=== PATIENT | female | born 1960 | race Caucasian/White ===

== ENCOUNTER 2016-10-09 17:15 | Observation (INO) | payer MEDICARE, OTHER ==
[~2016-10-09] VITALS: Ht 172.7 cm; Wt 90.0 kg
[2016-10-09] MEDS ORDERED: ONDANSETRON 2MG/ML, 2ML IVPush ONE (17:30)
[2016-10-09] MEDS ORDERED: MAALOX/HYOSCYAMINE/LIDOCAINE 45 ML BOTTLE PO ONE (17:30)
[2016-10-09] MEDS ORDERED: FAMOTIDINE 20 MG/2 ML IVP ONE (17:30)
[2016-10-09 17:48] LABS: HEMOGLOBIN 14.9 g/dL (11.7-16.4)
[2016-10-09] MEDS ORDERED: MAALOX/HYOSCYAMINE/LIDOCAINE 45 ML BOTTLE ONE (17:51)
[2016-10-09] MEDS ORDERED: ONDANSETRON 2MG/ML, 2ML ONE (17:51)
[2016-10-09] MEDS ORDERED: FAMOTIDINE 20 MG/2 ML ONE (17:51)
[2016-10-09 17:58] LABS: ASPARTATE AMINO TRANSFERASE 107 U/L (15-37); BLOOD UREA NITROGEN 9 mg/dL (7-18)
[2016-10-09] MEDS ORDERED: NITROGLYCERIN SINGLE TAB 0.4 MG SL PRN (18:30)
[2016-10-09] MEDS ORDERED: SODIUM CHLORIDE FLUSH 10ML SYR IVF ONE (18:30)
[2016-10-09] MEDS ORDERED: NITROGLYCERIN SINGLE TAB 0.4 MG SL ONE (19:25)
[2016-10-09 19:32] LABS: IS PT STATUS REG ER OR PRE ER? YES
[2016-10-09] MEDS ORDERED: NATA300V2 IV (20:13)
[2016-10-09] MEDS ORDERED: WARF3TAB7 PO (20:17)
[2016-10-09] MEDS ORDERED: CITA20TA9 PO (20:17)
[2016-10-09] MEDS ORDERED: CARB200T4 PO (20:17)
[2016-10-09] MEDS ORDERED: WARF6TAB7 PO (20:17)
[2016-10-09] MEDS ORDERED: CHOL100011 PO (20:17)
[2016-10-09] MEDS ORDERED: HYDROmorphone 2 MG/ML, 1ML IVPush PRN (20:30)
[2016-10-09] MEDS ORDERED: CEFDINIR 300 MG CAPSULE PO SCH (20:30)
[2016-10-09] MEDS: SODIUM CHLORIDE 0.9% 1,000 ML IV SCH ×2 (21:23→22:21)
[2016-10-09] MEDS ORDERED: ACETAMINOPHEN 325 MG TABLET PO PRN (21:30)
[2016-10-09] MEDS ORDERED: BISACODYL 10 MG SUPP PR PRN (21:30)
[2016-10-09] MEDS ORDERED: ENOXAPARIN 40 MG/0.4 ML SQ SCH (21:30)
[2016-10-09] MEDS ORDERED: ONDANSETRON ODT 4 MG PO PRN (21:30)
[2016-10-09] MEDS ORDERED: LABETALOL 5MG/ML, 20ML IV PRN (21:30)
[2016-10-09] MEDS ORDERED: ATORVASTATIN 80 MG TABLET PO SCH (21:30)
[2016-10-09] MEDS ORDERED: DOCUSATE 100 MG CAPSULE PO PRN (21:30)
[2016-10-09] MEDS ORDERED: POLYETHYLENE GLYCOL 17 GM PACKET PO PRN (21:30)
[2016-10-09 22:03] VITALS: BP 125/79
[2016-10-09 23:29] LABS: IS PT STATUS REG ER OR PRE ER? NO
[2016-10-09] MEDS: FAMOTIDINE 20 MG TABLET PO SCH (23:31)
[2016-10-10] MEDS ORDERED: DIPHENHYDRAMINE 50 MG CAPSULE PO ONE (01:00)
[2016-10-10 02:00] VITALS: BP 110/70
[2016-10-10] MEDS: SODIUM CHLORIDE 0.9% 1,000 ML IV SCH (04:54)
[2016-10-10 06:18] LABS: IS PT STATUS REG ER OR PRE ER? NO
[2016-10-10 06:47] VITALS: BP 106/70
[2016-10-10] MEDS: FAMOTIDINE 20 MG TABLET PO SCH (07:57)
[2016-10-10] MEDS ORDERED: CHOLECALCIFEROL 1,000 UNIT TABLET PO SCH (09:00)
[2016-10-10] MEDS ORDERED: ASPIRIN 81 MG TABLET CHEW PO SCH (09:00)
[2016-10-10] MEDS ORDERED: WARFARIN 3 MG TABLET PO-COUM SCH (09:00)
[2016-10-10] MEDS ORDERED: CARBAMAZEPINE 200 MG TABLET PO SCH (09:00)
[2016-10-10] MEDS ORDERED: CITALOPRAM 20 MG TABLET PO SCH (09:00)
[2016-10-10] MEDS ORDERED: REGADENOSON 0.4 MG/5 ML SYRINGE ONE (09:03)
[2016-10-10 13:37] VITALS: BP 119/77
[2016-10-10] MEDS ORDERED: OMEP-110 PO (13:41)
[2016-10-10] MEDS ORDERED: LEVO250T23 PO (13:41)
== END 2016-10-10 15:03 | disposition home or self-care (01) ==
LOC: ED 21:03 → EDIP 21:04 → ED 21:33 → 5SO 22:02
PROVIDERS: ADMIT Internal Medicine; ATTEND Internal Medicine
DX: R07.9 Chest pain, unspecified (principal); G35 Multiple sclerosis; G50.0 Trigeminal neuralgia; N39.0 Urinary tract infection, site not specified; Z86.711 Personal history of pulmonary embolism
CPT/HCPCS: 36415; 71010; 78452; 80053; 81001; 83690; 84484; 85025; 85379; 85610; 87077; 87086; 87186; 93005; 93017; 96361; 96372; 96374; 96375; 99285; A9502; C9898; G0378; J1650; J2405; J2785; J7030; S0028